=== PATIENT | male | born 1965 | race African-American/Black ===

== ENCOUNTER 2018-04-19 09:29 | Day surgery (SDC) | payer OTHER ==
[~2018-04-19] VITALS: Ht 167.6 cm; Wt 93.0 kg
[~2018-04-19 09:29] MED LIST: AFRIN,GENASAL D15 ML BOTH NARES; BENADRYL50 MG PO; CATAPRES0.1 MG PO; COLACE50 MG PO; Coumadin,Jantoven PO; Cozaar PO; FLEXERIL5 MG PO; HYDROCHLOROTHIA50 MG PO; HYDROCODON-ACE1 EAC7 PO; Hydrodiuril,Oretic,E PO; Lovenox SC; METOPROLOL SUCC50 MG PO; NORMODYNE,TRAN200 MG PO; NORVASC10 MG PO; Normodyne,Trandate PO; Norvasc PO; PEPCID20 MG PO; PERCOCET 5/31 TABLET PO; PREDNISONE20 MG PO; ZOFRAN4 MG PO
[2018-04-19 09:55] VITALS: BP 130/73
[2018-04-19] MEDS ORDERED: OXYCODONE HCL5 MG PO (12:25)
[2018-04-19 14:48] VITALS: BP 139/73
[2018-04-19 15:50] VITALS: BP 135/76
== END 2018-04-19 16:07 | disposition home or self-care (01) ==
LOC: SDC 09:29
PROC: 0WUF0JZ Supplement Abdominal Wall with Synthetic Substitute, Open Approach (ICD-10-PCS; principal; 2018-04-19)
DX: K42.0 Umbilical hernia with obstruction, without gangrene (principal); I10 Essential (primary) hypertension; I42.9 Cardiomyopathy, unspecified; I27.20 Pulmonary hypertension, unspecified; I07.1 Rheumatic tricuspid insufficiency; R94.31 Abnormal electrocardiogram [ECG] [EKG]; Z86.711 Personal history of pulmonary embolism; Z86.718 Personal history of other venous thrombosis and embolism
CPT/HCPCS: 93005; C1781; J0131; J0690; J1100; J1170; J2250; J2405; J2710; J3010; J7643; S0020